=== PATIENT | female | born 1990 | race Caucasian/White ===

== ENCOUNTER 2018-06-22 10:04 | Emergency (ER) | payer MEDICAID ==
[2018-06-22] MEDS ORDERED: NS 1,000 ML IV ONE ×2 (10:53)
[2018-06-22] MEDS ORDERED: ONDANSETRON 4 MG/2 ML VIAL IVP ONE (10:54)
--- NOTE | 2018-06-22 11:01 | EDPHY ---
H & P Time Seen by Provider: 06/22/18 10:47 HPI/ROS: HPI Lightheaded. Nausea and vomiting. 28-year-old female by private vehicle. She reports that over the last 3 days she has had intermittent episodes of lightheadedness without syncope and nausea with vomiting. She describes having 4-6 episodes of nonbilious non bloody vomiting over that time. She states that the last time she vomited was last night. She reports that she has been drinking fluids this morning and has not vomited. She reports that her last meal was yesterday evening. She denies any associated abdominal pain. She has had no vaginal bleeding. Denies diarrhea. No rectal bleeding or bloody stool. She reports having a dry cough, intermittently productive of a greenish sputum for the last several days as well. No new medications. She reports that she has had lightheadedness similar to this in the past but it has not lasted as long in duration. Please see review of systems for further details. ROS: Constitutional: No fever, no chills. As above. Eyes: No discharge. No changes in vision. ENT: No sore throat. No nasal congestion or rhinorrhea. Respiratory: She has had an intermittent nonproductive cough. No shortness of breath. Cardiac: No chest pain, no palpitations. Gastrointestinal: No abdominal pain, as above, no diarrhea. Genitourinary: No hematuria. No dysuria or increased frequency with urination. No vaginal bleeding. Musculoskeletal: No back pain. No neck pain. No myalgias or arthralgias. Skin: No rashes. Neurological: No headache. No focal weakness or altered sensation. Past medical history: PCOS, fatty liver, hypertension, tonsillectomy, breas biopsy, IBS, migraine headaches, hypothyroid. Social history: Nonsmoker. She is here by herself. She is currently drinking an energy drink. Physical Exam: General Appearance: Alert, no distress, flat affect. This patient is responding to questions appropriately and in full sentences. This patient appears well-hydrated and well-nourished. Eyes: Pupils equal and round no pallor or injection. No lid edema, erythema or injection. Respiratory: There are no retractions, lungs are clear to auscultation with good air movement bilaterally. Cardiovascular: Regular rate and rhythm. No murmur. Gastrointestinal: Obese habitus. Abdomen is soft and nontender, no masses, bowel sounds normal. No focal tenderness at McBurney's point. No Ramírez sign. Neurological: Motor sensory function is grossly intact. Cranial nerves are normal. Gait is normal. Skin: Warm and dry, no rashes. Musculoskeletal: Neck is supple and nontender. Extremities are symmetrical. All joints range without pain or impingement. Psychiatric: No agitation. No depression. Database: Urine negative. Urinalysis dip significant for 1+ leukocytes. EKG: EKG time is 11:11 a.m.; EKG shows a narrow complex normal sinus rhythm with a ventricular rate of 68. The ME, QRS, QT intervals are within normal limits. There are no ST-T wave changes indicative of ischemic or injury pattern. No evidence of right heart strain. Interpreted by me. Imaging: Chest x-ray PA and lateral; the cardiac mediastinal silhouette is unremarkable. No evidence of infiltrate or pneumothorax. No acute cardiopulmonary disease process noted. Interpreted by me. Procedures: Emergency department course: Triage vital signs reviewed and are normal. IV was placed. She was started on IV normal saline with 1-2 L to be given over the next 1-2 hours for dehydration. She will be given 4 mg of IV Zofran and 20 mg of IV Pepcid. She has a benign abdomen. EKG and blood work to be obtained. She endorses. The patient's urine analysis was significant for 1+ leukocytes. She does not have any urinary complaints. Will send this for culture at [facility]. I explained to the patient that if her culture results are positive she would be notified and we would prescribe the appropriate antibiotic. 12:10 p.m., the patient was re-evaluated, results of her diagnostic testing discussed with her. Her presentation is consistent with a viral syndrome. I feel a cardiac etiology of her lightheadedness is unlikely. She is not anemic. She has had 2 L of IV normal saline. She has been up and ambulatory to the bathroom without issue. She feels comfortable going home and I feel she is safe for discharge. Follow-up and return to emergency department precautions have been reviewed with her. All of her questions were answered. She was discharged from the emergency department in good condition. Differential Diagnosis: The differential diagnosis on this patient includes but is not limited to vomiting with dehydration, food-borne illness, viral gastritis. Anemia, acute thyroid disorder, cardiac arrhythmia, acute coronary syndrome, pulmonary embolism unlikely. This represents a partial list of diagnoses considered. These considerations are based on history, physical exam, past history, reassessment and diagnostic testing. Smoking Status: Heavy smoker Constitutional: Initial Vital Signs Temperature (C) 36.7 C 06/22/18 10:22 Heart Rate 76 06/22/18 10:22 Respiratory Rate 16 06/22/18 10:22 Blood Pressure 131/94 H 06/22/18 10:22 O2 Sat (%) 96 06/22/18 10:22 O2 Delivery Mode Room Air Allergies/Adverse Reactions: No Known Allergies Allergy (Verified 06/22/18 10:27) Home Medications: Medication Instructions Recorded Metformin Hydrochloride 06/23/13 Klonopin 06/22/18 Ondansetron Odt [Zofran Odt 4 mg 4 mg PO Q4PRN PRN #10 tab 06/22/18 (*)] PRISTIQ 06/22/18 Synthroid 06/22/18 VYVANSE 06/22/18 Zantac 06/22/18 Medical Decision Making - Data Points Microbiology Results: MICROBIOLOGY 06/22/18 15:40 Unspecified Urine Culture - Preliminary Medications Given: Discontinued Medications Sodium Chloride (Ns) 1,000 mls @ 0 mls/hr IV EDNOW ONE; Wide Open PRN Reason: Protocol Stop: 06/22/18 10:54 Last Admin: 06/22/18 11:12 Dose: 1,000 mls Sodium Chloride (Ns) 1,000 mls @ 0 mls/hr IV EDNOW ONE; Wide Open PRN Reason: Protocol Stop: 06/22/18 10:54 Last Admin: 06/22/18 11:13 Dose: 1,000 mls Famotidine 20 mg/ Sodium (Chloride) 102 mls @ 408 mls/hr IV EDNOW ONE Stop: 06/22/18 11:16 Last Admin: 06/22/18 11:24 Dose: 102 mls Ondansetron HCl (Zofran) 4 mg IVP EDNOW ONE Stop: 06/22/18 10:55 Last Admin: 06/22/18 11:23 Dose: 4 mg Point of Care Test Results: Chemistry 06/22/18 11:19 POC Sodium 148 mEq/L H mEq/L (135-145) POC Potassium 3.2 mEq/L L mEq/L (3.3-5.0) POC Chloride 106 mEq/L mEq/L (97-110) POC BUN 14 mg/dL mg/dL (7-23) POC Creatinine 0.7 mg/dL mg/dL (0.6-1.0) POC Glucose 93 mg/dL mg/dL (70-100) ISTAT H&H 06/22/18 11:19 POC Hgb 14.3 gm/dL gm/dL (12.6-16.3) POC Hct 42 % % (38-47) Urine Collection Date 06/22/18 Collection Time 11:40 HCG Results Negative Urine Dip Collection Date 06/22/18 Collection Time 11:40 Specific [place] (1.002-1.030) 1.030 PH (5.0-7.5) 6.0 Leukocytes (Negative) 1+ Nitrites (Negative) Negative Protein (Negative) Trace Glucose (Negative) Negative Ketones (Negative) Negative Urobilnogen (0.2-1.0 EU) 0.2 Bilirubin (Negative) Test Not Performed Blood (Negative) Trace Departure - Departure Disposition: Home, Routine, Self-Care Clinical Impression: Vomiting, Lightheaded, Hypokalemia Condition: Good Instructions: Hypokalemia (ED), Acute Nausea and Vomiting (ED), Lightheadedness (ED) Additional Instructions: Read and follow provided instructions. Follow-up with your primary care physician in 1-2 days for re-evaluation. Take medication as prescribed for nausea. Keep well hydrated and drink lots of fluids. A good fluid to drink is Gatorade mixed with water in a 1-1 dilution. Return to the emergency department for worsening symptoms or other serious concerns. Call the main hospital at [facility] for your urine culture results which should be available on Sunday. Referrals: NONE *PRIMARY CARE P,. [Primary Care Provider] - As per Instructions Stand Alone Forms: Work Excuse Prescriptions: Ondansetron Odt [Zofran Odt 4 mg (*)] 4 mg PO Q4PRN PRN #10 tab PRN Reason: For Nausea & Vomiting
[2018-06-22] MEDS ORDERED: FAMOTIDINE 20 MG in NS 100 ML IV ONE (11:02)
[2018-06-22 13:29] VITALS: BP 121/76
== END 2018-06-22 12:25 | disposition home or self-care (01) ==
LOC: CED 10:04
DX: E87.6 Hypokalemia (principal); R42 Dizziness and giddiness; E86.9 Volume depletion, unspecified
CPT/HCPCS: 71046-PO; 82435-PO; 82565-PO; 82947-PO; 84132-PO; 84295-PO; 84520-PO; 85014-ER; 96361-ER; 96374-ER; 99284-ER; J2405

== ENCOUNTER 2018-09-15 13:27 | Emergency (ER) | payer MEDICAID ==
--- NOTE | 2018-09-15 13:40 | EDPHY ---
H & P Stated Complaint: n/v/d started zofran and lomotil Time Seen by Provider: 09/15/18 13:40 HPI/ROS: HPI: This is a 28-year-old female who presents with Chief Complaint: Nausea, vomiting, diarrhea x1 week Location: GI Quality: Nausea, vomiting, diarrhea Duration: 1 week Signs and Symptoms: no fever, +nausea, + vomiting, no hematemesis, no blood in stool, no abdominal bloating, no diarrhea, no back pain, no urinary symptoms, no vaginal bleeding/discharge, no indigestion, no chest pain, no shortness of breath, + generalized abdominal cramping Timing: Acute, daily, intermittent episodes Severity: Moderate Context: Patient reports that for the last week she has had intermittent episodes of nausea, vomiting approximately 5-10 times per day, loose stools approximately 3 times per day accompanied by generalized abdominal cramping. She has a history of laparoscopic cholecystectomy 2014 and bilateral tubal ligation. Last menstrual period was 1-2 weeks ago. She was seen by her primary care provider last week and started on Zofran and Lomotil. She reports minimal relief of symptoms. No recent antibiotic use, no recent concern for food borne illness. Denies any urinary symptoms or vaginal bleeding or discharge. Does not drink alcohol regularly. Does not use NSAIDs regularly. Denies indigestion or reflux type symptoms. Modifying Factors: See above Comment: ROS: A comprehensive 10 system review of systems is otherwise negative aside from elements mentioned in the history of present illness. MEDICAL/SURGICAL/SOCIAL HISTORY: Medical history: PCOS, "fatty liver", HTN, IBS, Migraines. LMP 1-2 weeks ago. Surgical history: Bilateral tubal ligation, cholecystectomy, tonsillectomy, left breast biopsy, vulva biopsy x4 Social history: Heavy smoker. Employed in customer service. Denies marijuana use. Family history noncontributory. CONSTITUTIONAL: Obese, well-appearing, adult white female, awake and alert, no obvious distress HEENT: Atraumatic and normocephalic, PERRL, EOMI. Nares patent; no rhinorrhea; no nasal mucosal edema. Tympanic membranes clear. Oropharynx clear, no exudate and moist pink mucosa. Airway patent. No lymphadenopathy. No meningismus. Cardiovascular: Normal S1/S2, regular rate, regular rhythm, without murmur rub or gallop. PULMONARY/CHEST: Symmetrical and nontender. Clear to auscultation bilaterally. Good air movement. No accessory muscle usage. ABDOMEN: Soft, nondistended, mild generalized tenderness, large pannus noted, no rebound, no guarding, no peritoneal signs, no masses or organomegaly. No CVAT. EXTREMITIES: 2/2 pulses, strength 5/5, no deformities, no clubbing, no cyanosis or edema. NEUROLOGICAL: no focal neuro deficits. GCS 15. SKIN: Warm and dry, no erythema. no rash. Good capillary refill. Source: Patient Exam Limitations: No limitations - Personal History LMP (Females 10-55): 15-21 Days Ago Current Tetanus Diphtheria and Acellular Pertussis (TDAP): Yes - Medical/Surgical History Hx Asthma: Yes Hx Chronic Respiratory Disease: No Hx Diabetes: No Hx Cardiac Disease: No Hx Renal Disease: No Hx Cirrhosis: Yes Hx Alcoholism: No Hx HIV/AIDS: No Hx Splenectomy or Spleen Trauma: No Other PMH: PCOS, "fatty liver", HTN. tonsillectomy, breast biopsy leeft, vulva biopsy x4. IBS , Migraines - Social History Smoking Status: Heavy smoker Constitutional: Initial Vital Signs Temperature (C) 36.6 C 09/15/18 13:32 Heart Rate 92 09/15/18 13:32 Respiratory Rate 18 09/15/18 13:32 Blood Pressure 131/87 H 09/15/18 13:32 O2 Sat (%) 96 09/15/18 13:32 O2 Delivery Mode Room Air Allergies/Adverse Reactions: No Known Allergies Allergy (Verified 09/15/18 13:31) Home Medications: Medication Instructions Recorded Metformin Hydrochloride 06/23/13 Klonopin 06/22/18 Ondansetron Odt [Zofran Odt 4 mg 4 mg PO Q4PRN PRN #10 tab 06/22/18 (*)] PRISTIQ 06/22/18 Synthroid 06/22/18 VYVANSE 06/22/18 Zantac 06/22/18 Lomotil Tab (*) 09/15/18 Ondansetron Odt [Zofran Odt 4 mg 4 mg PO Q4 PRN #12 tab 09/15/18 (*)] Promethazine HCl 25 mg PO Q6 PRN #10 tablet 09/15/18 Medical Decision Making - Diagnostics Imaging Results: Imaging Impressions Abdomen CT 09/15/18 14:01 Impression: 1. Possible mild enteritis. No evidence for small bowel obstruction, bowel wall thickening, or inflammatory change. 2. Status post cholecystectomy. 3. 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 Results called and discussed with Keke Arroyo PA-C on September 15, 2018 at 1452 hours. ED Course/Re-evaluation: Vital signs reviewed and stable upon arrival. No systemic signs. IV access, laboratory studies, stool studies, CT abdomen and pelvis scan ordered Given 2 L normal saline, IV promethazine 12.5 mg, IV Reglan 10 mg, IV Benadryl 25 mg 1415: Laboratory studies reviewed. WBC 14 K. No signs of anemia/platelet dysfunction/LEVI/elevated LFTs/electrolyte imbalance/pancreatitis/. 1450: Called by radiologist, Dr. Mehta, who reports CT abdomen and pelvis scan shows very mild fluid-filled loops of small bowel but no signs of appendicitis, diverticulitis, obstruction, colitis. 1500: PO Zofran 4 mg given and P.o. Trial started. 1530: Reassessed patient. One over laboratory studies and CT scan results at bedside. Patient will be referred to Gastroenterology and a prescription for Zofran and Phenergan given. Work excuse provided. Believe that this is related to her irritable bowel syndrome. This patient was seen under the supervision of my primary supervising physician. I evaluated care for this patient independently. Differential Diagnosis: Abdominal pain including but not limited to appendicitis, cholecystitis, gastritis and urinary tract infection. - Data Points Laboratory Results: Laboratory Results 09/15/18 13:50 09/15/18 13:50 09/15/18 09/15/18 09/15/18 13:50 13:50 13:50 WBC 13.47 10^3/uL H 10^3/uL (3.80-9.50) RBC 5.06 10^6/uL 10^6/uL (4.18-5.33) Hgb 15.6 g/dL g/dL (12.6-16.3) Hct 45.5 % % (38.0-47.0) MCV 89.9 fL fL (81.5-99.8) MCH 30.8 pg pg (27.9-34.1) MCHC 34.3 g/dL g/dL (32.4-36.7) RDW 14.0 % % (11.5-15.2) Plt Count 323 10^3/uL 10^3/uL (150-400) MPV 9.7 fL fL (8.7-11.7) Neut % (Auto) 73.4 % % (39.3-74.2) Lymph % (Auto) 17.4 % % (15.0-45.0) Howard % (Auto) 6.8 % % (4.5-13.0) Eos % (Auto) 2.0 % % (0.6-7.6) Baso % (Auto) 0.1 % L % (0.3-1.7) Nucleat RBC Rel Count 0.0 % % (0.0-0.2) Absolute Neuts (auto) 9.88 10^3/uL H 10^3/uL (1.70-6.50) Absolute Lymphs (auto) 2.34 10^3/uL 10^3/uL (1.00-3.00) Absolute Monos (auto) 0.92 10^3/uL H 10^3/uL (0.30-0.80) Absolute Eos (auto) 0.27 10^3/uL 10^3/uL (0.03-0.40) Absolute Basos (auto) 0.02 10^3/uL 10^3/uL (0.02-0.10) Absolute Nucleated RBC 0.00 10^3/uL 10^3/uL (0-0.01) Immature Gran % 0.3 % % (0.0-1.1) Immature Gran # 0.04 10^3/uL 10^3/uL (0.00-0.10) Sodium 140 mEq/L mEq/L (135-145) Potassium 3.7 mEq/L mEq/L (3.5-5.2) Chloride 108 mEq/L mEq/L (97-110) Carbon Dioxide 24 mEq/l mEq/l (22-31) Anion Gap 8 mEq/L mEq/L (6-14) BUN 16 mg/dL mg/dL (7-23) Creatinine 0.8 mg/dL mg/dL (0.6-1.0) Estimated GFR > 60 Glucose 85 mg/dL mg/dL (70-100) Calcium 8.8 mg/dL mg/dL (8.5-10.4) Total Bilirubin 0.5 mg/dL mg/dL (0.1-1.4) Conjugated Bilirubin 0.4 mg/dL mg/dL (0.0-0.5) Unconjugated Bilirubin 0.1 mg/dL mg/dL (0.0-1.1) AST 22 IU/L IU/L (14-46) ALT 60 IU/L H IU/L (9-52) Alkaline Phosphatase 62 IU/L IU/L (38-126) Total Protein 5.7 g/dL L g/dL (6.3-8.2) Albumin 3.3 g/dL L g/dL (3.5-5.0) Lipase 29 IU/L IU/L (23-300) Beta HCG, Qual NEGATIVE Medications Given: Discontinued Medications Diphenhydramine HCl (Benadryl Injection) 25 mg IVP EDNOW ONE Stop: 09/15/18 14:02 Last Admin: 09/15/18 14:33 Dose: 25 mg Sodium Chloride (Ns) 1,000 mls @ 0 mls/hr IV EDNOW ONE; Wide Open PRN Reason: Protocol Stop: 09/15/18 14:01 Last Admin: 09/15/18 14:33 Dose: 1,000 mls Sodium Chloride (Ns) 1,000 mls @ 0 mls/hr IV EDNOW ONE; Wide Open PRN Reason: Protocol Stop: 09/15/18 14:01 Last Admin: 09/15/18 14:34 Dose: 1,000 mls Metoclopramide HCl (Reglan Injection) 10 mg IVP EDNOW ONE Stop: 09/15/18 14:01 Last Admin: 09/15/18 14:32 Dose: 10 mg Promethazine HCl (Phenergan) 12.5 mg IVP EDNOW ONE Stop: 09/15/18 14:01 Last Admin: 09/15/18 14:32 Dose: 12.5 mg Departure - Departure Disposition: Home, Routine, Self-Care Clinical Impression: Nausea & vomiting Qualifiers: Vomiting type: unspecified Vomiting Intractability: non-intractable Qualified Code(s): R11.2 - Nausea with vomiting, unspecified IBS (irritable bowel syndrome) Qualifiers: Irritable bowel syndrome type: with diarrhea Qualified Code(s): K58.0 - Irritable bowel syndrome with diarrhea Condition: Good Instructions: Irritable Bowel Syndrome (ED), Acute Nausea and Vomiting (ED) Additional Instructions: Consume a minimum of 8-10 glasses of water or electrolyte fluid replacement drinks that include Gatorade, Powerade, Pedialyte. Eat a bland diet for the next 48 hours and then slowly advance as tolerated. Take Zofran 1 tab every 4 hours as needed for nausea, vomiting. Take Phenergan every 6 hr as needed for nausea, vomiting not relieved by Zofran. Follow-up with Gastroenterology in the next 1-2 weeks to discuss your irritable bowel syndrome and treatment options. Referrals: PRATEEK GUILLEN [Primary Care Provider] - As per Instructions Jose Manuel Peñaloza MD [Medical Doctor] - As per Instructions Stand Alone Forms: Work Excuse Prescriptions: Ondansetron Odt [Zofran Odt 4 mg (*)] 4 mg PO Q4 PRN #12 tab PRN Reason: Nausea/Vomiting, Use 1st Promethazine HCl 25 mg PO Q6 PRN #10 tablet PRN Reason: Nausea/Vomiting, Use 2nd
[2018-09-15] MEDS ORDERED: METOCLOPRAMIDE 10 MG/2 ML VIAL IVP ONE (14:00)
[2018-09-15] MEDS ORDERED: PROMETHAZINE HCL 25 MG/ML INJ IVP ONE (14:00)
[2018-09-15] MEDS ORDERED: NS 1,000 ML IV ONE ×2 (14:00)
[2018-09-15 14:07] LABS: PLATELET COUNT 323 10^3/uL (150-400)
[2018-09-15] MEDS ORDERED: IOPAMIDOL (ISOVUE-300) 100 ML BTL ONE (14:12)
[2018-09-15 15:41] VITALS: BP 101/68
== END 2018-09-15 15:43 | disposition home or self-care (01) ==
DX: R11.2 Nausea with vomiting, unspecified (principal); K58.0 Irritable bowel syndrome with diarrhea; K76.0 Fatty (change of) liver, not elsewhere classified; I10 Essential (primary) hypertension; E86.9 Volume depletion, unspecified
CPT/HCPCS: 96374; J1200; J2550; J2765; Q9967